=== PATIENT | male | born 1960 | race Caucasian/White ===

== ENCOUNTER → 2016-07-11 | Outpatient (CLI) | payer BC ==
[~2016-07-11] MED LIST: AMLO10TA82 PO; ATN50T PO; CALC600T PO; GEMF600T3 PO; MULT1TAB PO; NAPR550T PO; NF-LISIN40 PO; SMV20T PO
--- NOTE | 2016-07-11 15:20 | Diagnostic Imaging Report ---
PROCEDURE: CT sinuses without contrast TECHNIQUE: Multiple contiguous axial images were obtained through the sinuses without the use of intravenous contrast. Coronal and sagittal reformations were then performed. INDICATION: Maxillary sinusitis. FINDINGS: There is rightward deviation and spurring of the nasal septum. The ostiomeatal complexes are patent, bilaterally. There is no paranasal sinus air-fluid level. There are small mucus retention cysts or polyps present within the maxillary sinuses, bilaterally. Remainder of the paranasal sinuses is clear. IMPRESSION: Minimal mucus retention cysts or polyps present in the maxillary sinuses without acute sinus abnormality identified. Dictated by: Dictated on workstation # [id number]
== END ==
LOC: RAD 14:35
PROVIDERS: ATTEND Otolaryngology
DX: J32.0 Chronic maxillary sinusitis (principal)
CPT/HCPCS: 70486